=== PATIENT | male | born 1995 | race Caucasian/White ===

== ENCOUNTER 2021-05-04 16:47 | Emergency (ER) | payer OTHER, SELFPAY ==
[2021-05-04 16:58] VITALS: BP 129/76; PULSE 91; RESP 18; TEMP 37; O2SAT 100
--- NOTE | 2021-05-04 17:02 | ED.NAVMDI ---
HPI - Nausea/Vomiting/Diarrhea General Chief complaint: Nausea/Vomiting/Diarrhea Stated complaint: Diarrhea Time Seen by Provider: 05/04/21 17:03 Source: patient and RN notes reviewed History of Present Illness HPI Narrative: Patient is a 25-year-old male who presents the urgent care with complaints of diarrhea since Monday. Patient states that he has continued to eat normal meals with his last meal being [place] food. Patient denies of any use of [id number] medications for his loose stools. States that his last bout of diarrhea was earlier today with a total of 2 in the last 24 hours. Patient denies of any vomiting, nausea, abdominal pain. Denies any known fevers. No other acute complaints. Patient states that he needs a work note . No acute distress noted. Patient aware of the plan of care. Some parts of this dictation were generated by voice recognition software and may contain typographical and/or grammatical inaccuracies. Related Data Home Medications Medication Instructions Recorded Confirmed No Home Medications 05/04/21 05/04/21 Allergies Allergy/AdvReac Type Severity Reaction Status Date / Time No Known Allergies Allergy Verified 05/04/21 17:01 Review of Systems Review of Systems: CONSTITUTIONAL: Denies fever, chills, or sweats. EYES: Denies visual changes, redness, or discharge. ENT: Denies rhinorrhea, congestion, sore throat, or otalgia. CARDIOVASCULAR: Denies chest pain, palpitations, or edema. RESPIRATORY: Denies cough or dyspnea. GASTROINTESTINAL: Reports of diarrhea without nausea, vomiting or abdominal pain GENITOURINARY: Denies dysuria or hematuria. SKIN: Denies rash or itching. MUSCULOSKELETAL: Denies back pain, joint pain, or myalgia. NEUROLOGIC: Denies headache, numbness, or weakness. All other systems reviewed are negative, except as documented in HPI. PMFSH Social History Social History Gender identity (if verbalized by the patient): Female Comments At the time of my signature, I reviewed and agree with the nursing past medical, surgical, social, and family history. There is no relevant family history pertinent to the patient complaint. Exam Narrative: GENERAL: This is a well-nourished, well-developed patient, in no apparent distress. HEAD: normocephalic, atraumatic. EYES: PERRL. Sclera clear/white. Vision is grossly intact. EARS: External ears normal NOSE: External nose normal with no obvious nasal discharge, nares without redness, no rhinorrhea. THROAT: Mucous membranes moist NECK: Neck supple CARDIOVASCULAR: Regular rate and rhythm without murmurs, gallops, or rubs. RESPIRATORY: Clear to auscultation. Breath sounds equal bilaterally. No wheezes, rales, or rhonchi. GASTROINTESTINAL: Abdomen soft, non-tender, nondistended. Bowel sounds are active. SKIN: warm, intact with no suspicious lesions or rash, good texture and turgor. NEURO: awake, alert, and oriented to person, place and time. There were no obvious focal neurologic abnormalities. EXTREMITIES: No clubbing, cyanosis, or edema. Course Vital Signs Vital signs: Vital Signs Temperature 98.6 F 05/04/21 16:58 Pulse Rate 91 05/04/21 16:58 Respiratory Rate 18 05/04/21 16:58 Blood Pressure 129/76 05/04/21 16:58 Pulse Oximetry 100 05/04/21 16:58 Temperature 98.6 F 05/04/21 16:58 Pulse Rate 91 05/04/21 16:58 Respiratory Rate 18 05/04/21 16:58 Blood Pressure 129/76 05/04/21 16:58 Pulse Oximetry 100 05/04/21 16:58 Reviewed MDM - Nausea/Vomiting/Diarrhea MDM Narrative Medical decision making narrative: Advised the patient to use mjnw-joa-gqhiher medication such as Imodium or Pepto-Bismol as needed for symptom relief. Eat a bland diet and increase water intake. If you need a release back to work with a negative Covid test, you will need to follow-up with an outpatient study at a Covid testing site such as [facility] or [facility]. If you develop any increase in symptoms associated with ab
== END 2021-05-04 17:14 | disposition home or self-care (01) ==
PROVIDERS: Emergency Provider Nurse Practitioner Family
DX: R19.7 Diarrhea, unspecified (principal)
CPT/HCPCS: 99211; G0463